=== PATIENT | female | born 1960 | race Caucasian/White ===

== ENCOUNTER → 2020-12-21 12:21 | Outpatient (CLI) | payer OTHER, SELFPAY ==
--- NOTE | 2020-12-21 12:31 | US_ITS ---
STUDY: SUPERFICIAL ULTRASOUND - LEFT UPPER CHEST. REASON FOR EXAM: Female, 60 years old. L CHEST PAIN/L BREAST CA/MASECTOMY TECHNIQUE: A superficial ultrasound was performed with real-time and static ann-scale imaging. COMPARISON: None. FINDINGS: The area of the pain was examined by ultrasound. The patient is status post left mastectomy. No sonographic abnormality is seen. US/Chest IMPRESSION: No sonographic abnormality is seen. Electronically Signed: Saurabh Izaguirre MD at 14:18 EDT , Service support ,
== END ==
DX: R07.9 Chest pain, unspecified (principal); Z85.3 Personal history of malignant neoplasm of breast; Z90.13 Acquired absence of bilateral breasts and nipples
CPT/HCPCS: 76604

== ENCOUNTER 2021-05-28 15:55 | Emergency (ER) | payer OTHER, SELFPAY ==
[2021-05-28 15:56] VITALS: BP 145/104; PULSE 103; RESP 18; TEMP 37; O2SAT 97; BMI 40.3
--- NOTE | 2021-05-28 16:57 | EDS_ITS ---
HPI History of Present Illness Chief Complaint: Laceration Informant: patient Narrative Narrative: Patient was cutting meat at home. Her hand slipped on the knife. She has a laceration to the right dominant hand. She states it goes through the area of the first webspace. Most is on the palmar side. She states every time she unwrapped it it starts bleeding again. She does take baby aspirin but no other anticoagulation. Last tetanus shot was somewhere between 5 and 10 years ago. She does not need anything for pain. She states it really does not hurt unless she moves it a bit. She denies numbness tingling or loss of range of motion. PFSH PFSH Medical History Anxiety Cancer H/O malignant neoplasm of breast Hypothyroidism Smoker Home Medications aspirin [Aspir-81] 81 mg PO DAILY 05/28/21 [History Last Taken Unknown] cephalexin 500 mg PO Q6 #28 cap 05/28/21 [Rx Last Taken Unknown] levothyroxine 150 mcg PO QHS 05/28/21 [History Last Taken Unknown] multivitamin [Multiple Vitamin] 1 tab PO DAILY 05/28/21 [History Last Taken Unknown] oxycodone 5 mg PO Q6H PRN 3 Days #10 tab 05/28/21 [Rx Last Taken Unknown] simvastatin 20 mg PO DAILY 05/28/21 [History Last Taken Unknown] Allergy/AdvReac Type Severity Reaction Status Date / Time adhesive Allergy Rash Verified 05/28/21 17:36 Surgical History H/O bilateral mastectomy History of tonsillectomy Social History Smoking Status: Current every day smoker tobacco type: cigarettes ROS ROS ED Constitutional Constitutional ED: Denies chills or fever(s) Cardiovascular Cardiovascular: Denies chest pain Respiratory/Chest Respiratory/Chest: Denies cough or dyspnea Gastrointestinal Gastrointestinal: Denies nausea or vomiting Musculoskeletal Musculoskeletal: Reports other Details: See history of present illness. Integumentary Reports other Details: See history of present illness. Neurologic Neurologic: Denies paresthesias or weakness Hematologic/Lymphatic Hematologic/Lymphatic: Reports other Details: Patient is not on aspirin. ; Denies easy bleeding or easy bruising EXAM Physical Exam Const Vital Signs: 05/28/21 15:56 05/28/21 21:10 Temperature 98.6 F Temperature Source Temporal Pulse Rate 103 H 91 Respiratory Rate 18 18 Blood Pressure 145/104 H 144/87 H Blood Pressure Mean 117 Pulse Ox 97 97 Oxygen Delivery Method Room Air Positive well nourished and well developed General Appearance ED: well developed and NAD HEENT atraumatic Resp normal respiratory effort Extremity Extremity Narrative: Patient has gauze wrapping on her right hand. There is no visible blood or bleeding through this wrapping at this time. Most of the wrapping is through the first webspace. This leaves her fingers and thumb exposed. She does not have any decreased sensation in any of her fingers or thumb. She has excellent flexion and extension and opposition of her thumb. Toy th deep and superficial flexor tendons are all intact. No sign of neurovascular injury. Capillary refill is normal. Neuro Neuro Narrative: See above exam. Sensorium / Orientation: alert Psych mental status grossly normal Skin Skin Narrative: Laceration will be explored more thoroughly after we have a blood pressure cuff on to control bleeding if needed. MDM MDM MDM Narrative Medical decision making narrative: Procedure: Suture laceration: Because the area of reports of moderate bleeding, we placed a gauze on the patient's forearm then a blood pressure cuff and then Ishmael wrap. We pump that up to about 200. Bleeding was controlled. We took down the dressing and scrubbed the area. There was a little bit of bleeding from the most lateral aspect of the laceration. Laceration total length was 4 cm and went from the midpoint of the distal aspect of the hyperthenar eminence toward the webspace. It was anesthetized with a total of 8 cc of 1% lidocaine without epinephrine. Good anesthesia was achieved. It was copiously scrubbed and irrigated. We let down the cuff. There was some bleeding from a very superficial pulsatile vessel. This was not more than 2 mm deep and quite small. There is no pallor dusky areas of the fingers or thumb. Cuff was put back up. I placed 2 [id number] Vicryl 4-0 sutures in that area. This did stop the bleeding. We then went to suture up the rest of the laceration. When we got to the end we did likely puncture this vessel slightly. We got some more bleeding. But it was controlled with pressure and the last suture. A total of ten 5-0 Ethilon were placed. We then cleaned the area. It had been cleaned and irrigated multiple times between and during the procedure also. Patient tolerated this well. We have now watched it for about 30 minutes. There is been no bleeding. There is no swelling in the area. We then let it rest again. We have now cleaned off the whole area. We have a light gauze dressing on it just for protection. We will watch it a bit further. I explained to the patient that this will hopefully stop the bleeding. She has no neurovascular he injury clinically. No tendinous injury. The wound did not appear to be deep. We examined it through irrigation and full exposure of the wound while the tourniquet was up with no bleeding. If we get further bleeding or swelling we may have to have her transferred for further care. But we will watch her here longer. She is now up in the department walking around to make sure were not having issues. We have watched the patient for some hours after procedure. They put a bandage gently on it. We can look under the bandage. There is a small amount of blood on the first layer to. But there is no active bleeding. She initially had numbness of her thumb and index finger. That sensation is now coming back as the lidocaine wears off. Her motion is good. She does have some swelling in the thenar eminence but it does not look like it is changed from initially. I had a long talk with the patient. If she has rebleeding I would expect most of this to be externally. There is no sign of anything except a superficial vessel. However, if she has swelling or pain in the hand develops new numbness tingling. Fevers, drainage redness up the arm at any point she needs to return. We will give her antibiotics. We will give her a few Percocet for pain although she would prefer to just take some Tylenol if she can. I want her to have another option. Radiography Diagnostic Testing: Radiology Impression Hand X-Ray 05/28/21 17:14 IMPRESSION: No demonstrated fracture. Soft tissue swelling with laceration. Electronically Signed: Дмитрий Giang MD ([facility]) at 17:44 EDT , Service support , Discharge Plan Triage Chief Complaint: Laceration ED Provider: Andrés Caraballo Dx/Rx/DC Orders Clinical Impression: Laceration of right palm Instructions: ED Laceration: All Closures Prescriptions: New cephalexin [cephalexin] 500 MG capsule 500 mg PO Q6 Qty: 28 RF: 0 oxycodone 5 mg tablet 5 mg PO Q6H PRN (Reason: pain) 3 Days Qty: 10 RF: 0 No Action multivitamin [Multiple Vitamin] Tablet 1 tab PO DAILY RF: 0 aspirin [Aspir-81] 81 mg Tablet,Delayed Release (Dr/Ec) 81 mg PO DAILY RF: 0 simvastatin 20 mg tablet 20 mg PO DAILY RF: 0 levothyroxine 150 mcg tablet 150 mcg PO QHS RF: 0 Referrals: ZIGGY ROBERTS [Other] - 10-14 Days suture removal Disposition Disposition: Home, Self Care Discharge Date/Time: 05/28/21 21:30
--- NOTE | 2021-05-28 17:14 | RAD_ITS ---
STUDY: X-RAY - LEFT HAND REASON FOR EXAM: Female, 61 years old. hand laceration TECHNIQUE: 3 view(s) of the hand. COMPARISON: None. FINDINGS: Normal radiocarpal articulation. Normal distal radioulnar joint. Degenerative subcortical cyst of the scaphoid. Normal carpal articulations Normal carpometacarpal articulation of the thumb. Normal second through fifth carpometacarpal joints. Normal metacarpi. Normal metacarpophalangeal joint of the thumb. Normal interphalangeal joint of the thumb. Normal proximal and distal phalanges of the thumb. Normal metacarpophalangeal joints of the second through fifth fingers. Normal proximal and distal interphalangeal joints of the second through fifth fingers. Normal phalanges of the second through fifth fingers. Soft tissue injury with subcutaneous air of the palmar hand. RAD/Hand Min 3 Views IMPRESSION: No demonstrated fracture. Soft tissue swelling with laceration. Electronically Signed: Дмитрий Giang MD ([facility]) at 17:44 EDT , Service support ,
--- NOTE | 2021-05-28 17:31 | ED.RN ---
TOURNIQUET APPLIED PER DR GALLOWAY REQUEST
[2021-05-28] MEDS: Lidocaine 1% (20 ml mdv) 20 ML Vial INFILT (17:37)
[2021-05-28] MEDS: Diphth,Pertuss(Acell),Tet Vac 0.5 ML Vial IM (17:37)
[2021-05-28] MEDS: Cephalexin 250 MG Capsule 500 MG PO (21:06)
[2021-05-28 21:10] VITALS: BP 144/87; PULSE 91; RESP 18; O2SAT 97
== END 2021-05-28 21:30 | disposition home or self-care (01) ==
PROVIDERS: Emergency Provider Emergency Medicine
DX: S61.411A Laceration without foreign body of right hand, initial encounter (principal); E03.9 Hypothyroidism, unspecified; F17.210 Nicotine dependence, cigarettes, uncomplicated; Z79.82 Long term (current) use of aspirin; Z85.3 Personal history of malignant neoplasm of breast; Z79.899 Other long term (current) drug therapy; W26.0XXA Contact with knife, initial encounter; Y93.9 Activity, unspecified; Y92.89 Other specified places as the place of occurrence of the external cause; Y99.8 Other external cause status; Z23 Encounter for immunization
CPT/HCPCS: 12001; 73130; 90471; 90715; 99284

== ENCOUNTER → 2024-10-16 | Outpatient (CLI) | payer OTHER, SELFPAY | END | disposition home or self-care (01) | LOC: SL 08:27 | DX: G47.10 Hypersomnia, unspecified (principal) | CPT/HCPCS: 95806 ==

== ENCOUNTER → 2025-02-24 | Outpatient (CLI) | payer OTHER, SELFPAY ==
[2025-02-24] MEDS: Zaleplon 5 MG Capsule PO (22:00)
== END | disposition home or self-care (01) ==
LOC: SL 20:31
PROVIDERS: PCP Internal Medicine; Referring Provider Nurse Practitioner Family; Visit Provider Nurse Practitioner Family
DX: G47.10 Hypersomnia, unspecified (principal)
CPT/HCPCS: 95810